=== PATIENT | male | born 1990 | race Caucasian/White ===

== ENCOUNTER 2018-06-01 06:11 | Emergency (ER) | payer MEDICAID ==
[2018-06-01] MEDS ORDERED: IPRATROPIUM/ALBUTEROL 3 ML DEYVIAL ONE (06:19)
[2018-06-01] MEDS ORDERED: IPRATROPIUM/ALBUTEROL 3 ML DEYVIAL IH ONE (06:23)
[2018-06-01] MEDS ORDERED: predniSONE 20 MG TAB ONE (06:30)
[2018-06-01] MEDS ORDERED: predniSONE 20 MG TAB PO ONE (06:31)
--- NOTE | 2018-06-01 06:32 | EDPHY ---
H & P Stated Complaint: asthma attack Time Seen by Provider: 06/01/18 06:26 HPI/ROS: Chief Complaint: Cough, wheeze HPI: 28-year-old male with a history of asthma presenting with exacerbation this morning. Patient states he woke up feeling short of breath. He uses albuterol inhaler without relief. He has a history of asthma the does not take any control medications. States in inhaler usually lasts him about a month. Does not use a spacer. He was out in the cold snow 2 days ago showing and started getting more of a cough. No fevers or chills. No chest pain shortness of breath. He is a former smoker but has not smoked for the last 3 months. He has an appointment with primary care physician tomorrow. He is speaking in full sentences. ROS: 10 systems were reviewed and were negative except those elements noted in the HPI. PMH: Asthma Social History: Former recent smoking Family History: non-contributory Physical Exam: Gen: Awake, Alert, No Distress HEENT: Nose: no rhinorrhea Eyes: PERRLA, EOMI Mouth: Moist mucosa Neck: Supple, no JVD Chest: nontender, moderate diffuse expiratory wheezing, no focal rales or rhonchi Heart: S1, S2 normal, no murmur Abd: Soft, non-tender, no guarding Back: no CVA tenderness, no midline tenderness Ext: no edema, non-tender Skin: no rash Neuro: CN II-XII intact, Sensation grossly intact, Strength 5/5 in bilateral upper and lower extremities - Medical/Surgical History Hx Asthma: Yes Hx Chronic Respiratory Disease: No Hx Diabetes: No Hx Cardiac Disease: No Hx Renal Disease: No Hx Cirrhosis: No Hx Alcoholism: No Hx HIV/AIDS: No Hx Splenectomy or Spleen Trauma: No - Social History Smoking Status: Never smoked Constitutional: Initial Vital Signs Temperature (C) 36.6 C 06/01/18 06:13 Heart Rate 69 06/01/18 06:13 Respiratory Rate 28 H 06/01/18 06:13 Blood Pressure 136/78 H 06/01/18 06:13 O2 Sat (%) 96 06/01/18 06:13 O2 Delivery Mode Room Air Allergies/Adverse Reactions: amoxicillin Allergy (Verified 06/01/18 06:13) Home Medications: Medication Instructions Recorded Albuterol 06/01/18 predniSONE 60 mg PO DAILY #15 tab 06/01/18 Medical Decision Making ED Course/Re-evaluation: 28-year-old male with acute asthma exacerbation. He is much improved after a DuoNeb treatment. Will discharge with course of steroids - Data Points Medications Given: Discontinued Medications Albuterol/Ipratropium (Duoneb) 3 ml IH EDNOW ONE Stop: 06/01/18 06:24 Last Admin: 06/01/18 06:24 Dose: 3 ml Prednisone (Prednisone) 60 mg PO EDNOW ONE Stop: 06/01/18 06:32 Last Admin: 06/01/18 06:32 Dose: 60 mg Departure - Departure Disposition: Home, Routine, Self-Care Clinical Impression: Exacerbation of asthma Condition: Good Instructions: Asthma (ED) Additional Instructions: Please take her full course of steroids. Follow up with primary care physician in 2-3 days for further evaluation. Return to the emergency department for increasing cough, shortness of breath, fevers, chills, or any other concerns. Referrals: NONE *PRIMARY CARE P,. [Primary Care Provider] - As per Instructions Prescriptions: predniSONE 60 mg PO DAILY #15 tab
[2018-06-01 07:05] VITALS: BP 128/73
[2018-06-01] MEDS ORDERED: ALBUTEROL INH PREPACK MDI TAKEHOME ONE ×2 (07:12→07:13)
== END 2018-06-01 07:19 | disposition home or self-care (01) ==
DX: J45.901 Unspecified asthma with (acute) exacerbation (principal); F17.200 Nicotine dependence, unspecified, uncomplicated
CPT/HCPCS: J7512

== ENCOUNTER 2018-08-05 13:10 | Emergency (ER) | payer OTHER, MEDICAID ==
[2018-08-05] MEDS ORDERED: TDAP ADULT 0.5 ML INJ (BOOSTRIX) IM ONE (14:56)
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
[2018-08-05 15:39] VITALS: BP 136/86
== END 2018-08-05 15:00 | disposition home or self-care (01) ==
PROC: 2W2LX4Z Dressing of Right Lower Extremity using Bandage (ICD-10-PCS; principal; 2018-08-05)
DX: T24.131A Burn of first degree of right lower leg, initial encounter (principal); X04.XXXA Exposure to ignition of highly flammable material, initial encounter; Y99.0 Civilian activity done for income or pay; T31.0 Burns involving less than 10% of body surface

== ENCOUNTER 2018-08-30 05:23 | Emergency (ER) | payer MEDICAID, OTHER | END 2018-08-30 06:07 | disposition home or self-care (01) ==